=== PATIENT | male | born 1990 | race Caucasian/White ===

== ENCOUNTER 2018-07-24 18:41 | Emergency (ER) | payer BC, OTHER ==
[~2018-07-24] VITALS: Wt 79.5 kg
[2018-07-24 18:53] VITALS: BP 150/92; PULSE 64; RESP 18
[2018-07-24] MEDS ORDERED: IBUP-1542 PO (20:17)
--- NOTE | 2018-07-24 20:22 | ERD ---
ER Documentation Chief Complaint Chief Complaint L ANKLE PAIN X'S 10 DAYS S/P HIKING INJURY HPI 28-year-old male presents with left ankle or foot pain for last 10 days. Started after hiking trip although had no history of fall or acute pain. Pain later on a daily. The pain is at the base of the left fifth metatarsal. Patient is wearing a left walker boot for the last week antibiotic on the Internet. Patient just recently obtained insurance. Is not been seen for this as of yet. Denies any ankle pain. Pain is restricted to the fifth metatarsal base area of the foot. ROS All systems reviewed and are negative except as per history of present illness. Medications Home Meds Active Scripts Ibuprofen* (Motrin*) 600 Mg Tab, 600 MG PO Q6, #30 TAB Prov:KALEB TIDWELL MD 07/24/18 Allergies Allergies: Coded Allergies: No Known Allergy (Unverified , 07/24/18) PMhx/Soc Medical and Surgical Hx: pt denies Medical Hx History of Surgery: Yes (back 2009) Anesthesia Reaction: No Hx Alcohol Use: Yes (Occasional) Hx Substance Use: Yes (Marijuana) Hx Tobacco Use: No Smoking Status: Never smoker FmHx Family History: No diabetes, No coronary disease, No other Physical Exam Vitals Vital Signs Date Temp Pulse Resp B/P (MAP) Pulse Ox O2 O2 Flow FiO2 Time Delivery Rate 07/24/18 97.8 64 18 150/92 97 18:53 (111) Physical Exam Const: No acute distress Head: Atraumatic Eyes: Normal Conjunctiva ENT: Normal External Ears, Nose and Mouth. Neck: Full range of motion. No meningismus. Resp: Clear to auscultation bilaterally Cardio: Regular rate and rhythm, no murmurs Abd: Soft, non tender, non distended. Normal bowel sounds Skin: No petechiae or rashes Back: No midline or flank tenderness Ext: No cyanosis, or edema. Left lower extremity shows tenderness at the base of the left fifth metatarsal without significant swelling or deformities. There is no restricted range of motion or deficits and no warmth or erythema. Neur: Awake and alert Psych: Normal Mood and Affect Procedures/MDM X-ray left foot 3V Interpreted by me: Bones: No fracture Joints: No dislocation Foreign body: None impression-normal left foot x-ray Patient presents with signs and symptoms of left foot sprain. There is no evidence of fracture, deficits, infection. Discharged home with continuation of a walker boot, orthopedic and primary care follow-up and return precautions for fevers, redness, new symptoms. Departure Diagnosis: Primary Impression: Sprain of foot, left Encounter type: initial encounter Qualified Codes: S93.602A - Unspecified sprain of left foot, initial encounter Condition: Stable Patient Instructions: Sprain Foot Referrals: FLORECITA BERGERON MD [facility] Hours: Mon-Fri 9:00 AM - 5:00 PM Additional Instructions: X-ray read as normal. Likely sprain of ligament insertion. continue use of boot until pain resolved. See orthopedist for no improvement despite rest and immobilization for 1-2 weeks. Recheck for fevers, redness, new worsening symptoms. KALEB TIDWELL MD Jul 24, 2018 20:22
== END 2018-07-24 20:54 | disposition home or self-care (01) ==
LOC: FTE 18:41
DX: S93.602A Unspecified sprain of left foot, initial encounter (principal); X58.XXXA Exposure to other specified factors, initial encounter; Y92.9 Unspecified place or not applicable